=== PATIENT | female | born 1940 | race Caucasian/White ===

== ENCOUNTER 2018-06-20 03:07 | Outpatient (RCR) | payer SELFPAY | END 2018-07-20 03:07 | LOC: CR 03:07 | PROVIDERS: Visit Provider Family Medicine ==

== ENCOUNTER 2018-09-20 04:23 | Outpatient (RCR) | payer SELFPAY | END 2018-10-19 23:59 | disposition home or self-care (01) | LOC: CR 04:23 | PROVIDERS: Visit Provider Family Medicine | DX: Z51.89 Encounter for other specified aftercare (principal) ==

== ENCOUNTER 2019-06-20 04:44 | Outpatient (RCR) | payer SELFPAY | END 2019-07-20 23:59 | disposition home or self-care (01) | LOC: CR 04:44 | PROVIDERS: Visit Provider Family Medicine | DX: Z51.89 Encounter for other specified aftercare (principal) ==

== ENCOUNTER 2019-10-20 05:57 | Outpatient (RCR) | payer SELFPAY | END 2019-11-19 23:59 | disposition home or self-care (01) | LOC: CR 05:57 | PROVIDERS: Visit Provider Family Medicine | DX: Z51.89 Encounter for other specified aftercare (principal) ==